=== PATIENT | female | born 1940 | race Caucasian/White ===

== ENCOUNTER 2020-03-30 07:19 | Day surgery (SDC) | payer OTHER ==
--- NOTE | 2020-03-28 15:25 | RAD REPORT ---
EXAM DESCRIPTION: RAD - Chest Pa And Lat (2 Views) - 03/28/2020 3:16 pm CLINICAL HISTORY: preop Chest pain. COMPARISON: CHEST PA AND LAT 2 VIEW dated 11/22/2015 FINDINGS: The lungs are clear. The heart is mildly prominent in size. No displaced fractures. IMPRESSION: No acute or concerning finding suspected.
[2020-03-28 15:32] LABS: Absolute Lymphocytes (CBC) 1.6 K/uL (0.7-4.9); Basophils % 0.4 % (0-1.3); Hematocrit 42.6 % (36.0-45.0); Lymphocytes % 28.7 % (15.3-44.8); MPV 10.1 fL (7.6-11.3); RBC Red Blood Cell Count 4.68 M/uL (3.86-4.86)
[2020-03-28 15:49] LABS: Potassium 4.8 mmol/L (3.5-5.1)
--- NOTE | 2020-03-29 19:29 | EKG ---
Test Date: 2020-03-28 Test Time: 14:58:11 [employer] Operator: JACOB MEASUREMENT RESULTS: Intervals: Rate: 70 [place]: 156 QRSD: 90 QT: 404 QTc: 436 [place]: P: 55 [place]: 156 QRS: -7 T: 136 INTERPRETIVE STATEMENTS: Sinus rhythm with sinus arrhythmia with occasional premature ventricular complexes Possible Left atrial enlargement Left ventricular hypertrophy Nonspecific ST and T wave abnormality Abnormal ECG Compared to ECG 10/05/2007 15:50:43 Ventricular premature complex(es) now present Left ventricular hypertrophy now present Sinus bradycardia no longer present ST (T wave) deviation still present Electronically Signed On 03-29-20 19:24:24 CDT by Jordy Eugene
--- OUTSIDE RECORDS SUMMARY | 2020-03-30 07:22 | XMS REPORT | Continuity of Care Document ---
:1940 Author Organization [facility] t Address [address] [place] [address] [address] [place] [address] Care Team Providers Name Role Phone Unavailable Unavailable Unavailable Problems Condition Condition Condition Status Onset Resolution Last Treating Co mments Source Name Details Category Date Date Treatment Clinician Date GERD GERD Problem Active [facility] esophagiti esophagiti [facility] Essential Essential Problem Active [facility] (primary[facility] (primary[facility] - hypertensi hypertensi Me moria on on l [facility] Depression Depression Problem Active [facility] with with [facility] - anxiety anxiety [facility] Osteopenia Osteopenia Diagnosis Active [facility] of neck of of neck of [place] - left femur left femur Me moria l [facility] Obstructiv Obstructiv Diagnosis Active [facility] e sleep e sleep [facility] - apnea apnea [facility] syndrome syndrome l [facility] Diverticul Diverticul Diagnosis Active [facility] osis of osis of [facility] - large large Memoria intestine intestine l without without Outpati hemorrhage hemorrhage en t Clinics Nocturia Nocturia Diagnosis Active [facility] Allergies, Adverse Reactions, Alerts This patient has no known allergies or adverse reactions. Medications Ordered Filled Start Stop Current Ordering Indication Dosage Frequency Signature Comments Components Source Medication Medication Date Date Medication? Clinician (SIG) Name Name Align Align Yes Toan as [facility] Calcium Calcium Yes Toan [address] [facility] with meals [facility] Ciprofloxac Ciprofloxac Yes Toan [address] [facility] in HCl in HCl [facility] - [facility] Ativan Ativan Yes [facility] - as needed [facility] Omeprazole Omeprazole Yes Toan [address] [facility] Vitamin D3 Vitamin D3 Yes Otan [address] capsule [facility] Aspir-81 Aspir-81 Yes Toan [address] [facility] Metronidazo Metronidazo Yes Toan [address] [facility] Miralax Miralax Yes Toan One packet [facility] mixed with [facility] - 8 oz of Memoria Fluid l Outpati ent Clinics Stool Stool Yes Toan [address] [facility] Softener Softener Jose as needed L ukes - [facility] ent [facility] Diltiazem Diltiazem Yes Toan [address] [facility] [address] HCl ER HCl ER [facility] [place] [facility] Escitalopra Escitalopra Yes Toan [address] [facility] m Oxalate m Oxalate Jose [facility] - [facility] ent [facility] Procedures This patient has no known procedures. Encounters Start End Encounter Admission Attending Care Care Encounter Source Date/Time Date/Time Type Type Clinicians Facility Department ID 2020-04-26 2020-04-26 Outpatient [facility] [id number] 13:00:00 13:00:00 03 farhana Bond 2019-10-23 2019-10-23 Outpatient [facility] [id number] [facility] 16:15:00 16:15:00 02 farhana Bond 2019-09-11 2019-09-11 Outpatient [facility] [id number] [facility] 09:45:00 09:45:00 01 farhana Bond 2019-03-13 2019-03-13 Outpatient [facility] [id number] [facility] 09:45:00 09:45:00 00 farhana Bond 2018-05-05 2018-05-05 [facility] [id number] [facility] 14:15:00 14:15:[address] [facility] Medicine Medicine Outpati ent Clinics Results This patient has no known results.
[2020-03-30] MEDS ORDERED: BUPIVACAINE 0.5% PF 10 ML VIAL ONE (07:44)
[2020-03-30] MEDS ORDERED: Ringers Lactate 1,000 ML IV ONE ×2 (07:58→09:57)
[2020-03-30] MEDS ORDERED: CEFOXITIN/SWI 1gm 1 GM/10 ML SYR ONE (08:12)
[2020-03-30] MEDS ORDERED: MIDAZOLAM HCL 2 MG/2 ML INJ ONE (08:19)
[2020-03-30] MEDS ORDERED: LIDOCAINE 2% MPF 5 ML VIAL ONE (08:19)
[2020-03-30] MEDS ORDERED: FENTANYL CITR 100 MCG/2 ML ONE (08:19)
[2020-03-30] MEDS ORDERED: propofoL 200 MG/20 ML VIAL IV ONE (08:19)
[2020-03-30] MEDS ORDERED: ROCURONIUM 50 MG/5 ML VIAL IV ONE (08:20)
[2020-03-30] MEDS ORDERED: dexAMETHasone 10 MG/ML VIAL ONE (08:25)
[2020-03-30] MEDS ORDERED: GLYCOPYRROLATE 0.2 MG/ML SYR ONE (09:06)
[2020-03-30] MEDS ORDERED: KETOROLAC 30 MG/ML INJ ONE (09:27)
[2020-03-30] MEDS: LABETALOL 20 MG/4ML SYRINGE IV ONE ×2 (10:20→10:35)
[2020-03-30] MEDS ORDERED: ONDANSETRON 4 MG/2 ML VIAL ONE (10:36)
[2020-03-30] MEDS: HYDRALAZINE HCL 20 MG/ML VIAL ONE ×2 (10:58→11:03)
[2020-03-30] MEDS ORDERED: HYDROCODONE/APAP 7.5/325 MG TAB ONE (12:43)
[2020-03-30 13:12] VITALS: BP 137/51; TEMP 98; O2SAT 95
--- NOTE | 2020-03-30 20:07 | OP ---
Date of Procedure: 03/30/2020 Surgeon: Harsha Lopez MD Preoperative Diagnosis: Chronic cholecystitis and biliary dyskinesia. Postoperative Diagnosis: Chronic cholecystitis and biliary dyskinesia. Procedure: Laparoscopic cholecystectomy. Estimated Blood Loss: Minimal. Specimen: Gallbladder. Finding: As above. Anesthesia: General. Complications: None. Patient taken to Recovery in good general condition. Description Of Procedure: Patient was brought to the OR and placed in supine position. General anes thesia begun. Patient was prepped and draped in usual sterile fashion. Marcaine 0.5% infiltrated lo valerie. 15 blade was used to make a 1 cm supraumbilical midline incision. Subcutaneous tissues were divided. Fascia identified and divided. #1 Vicryl stay suture was placed. Peritoneal cavity was en tered with blunt dissection. A 12-mm trocar was placed into the peritoneal cavity under direct visio n. Pneumoperitoneum was established. Then, three 5 mm trocars were placed, 1 in the epigastrium jus t to the right of midline and 2 in the right subcostal region. Laparoscopy revealed inflammation of the gallbladder. Fundus retracted superiorly. Infundibulum was identified and retracted inferolater ally. Cystic duct and cystic artery were clearly identified with blunt dissection. Clips placed. B oth structures divided. There was minimal oozing noted from a branch of the cystic artery and as we could not get all the way around it and it was very been normal oozing, we put Avitene and Surgicel o n it and this controlled it without any difficulty. Then, cautery was used to remove the gallbladder from the liver bed. Bleeding on the liver bed was controlled with cautery. The gallbladder was ret rieved through the EndoCatch bag. Right upper quadrant examined and no evidence of bleeding or oozin g noted for any further. Surgicel and Avitene took care of the problem. Subsequently, all trocars wer e removed under direct vision. Stay sutures were tied to each other to reapproximate the fascial def ect. Subcutaneous wounds irrigated. Bleeding controlled with cautery. 3-0 chromic used for subcutane ous tissue and ray used to close the skin. Sterile dressing applied. Patient was awakened and t aken to Recovery in good general condition. Discharge Note: Patient will go to Day Surgery and home when stable. Disposition: Home. Condition: Stable. Discharge Instructions: Resume home medications and diet. Activity as tolerated. No heavy lifting. Remove outer dressing in 2 days. Shower. Keep wound clean and dry. Follow up in my office in 1 w [place]. Call for appointment. Tylenol No. 3 one tablet p.o. q.4 p.r.n. pain. Incentive spirometry as ordered. LEONEL/JOSE Voice ID: [id number] Report ID: [id number]
== END 2020-03-30 13:15 | disposition home or self-care (01) ==
LOC: OR 07:19
PROVIDERS: ATTEND Surgery
PROC: 0FT44ZZ Resection of Gallbladder, Percutaneous Endoscopic Approach (ICD-10-PCS; principal; 2020-03-30 08:30)
DX: K81.1 Chronic cholecystitis (principal); K82.8 Other specified diseases of gallbladder; I10 Essential (primary) hypertension; I49.3 Ventricular premature depolarization; G47.33 Obstructive sleep apnea (adult) (pediatric); K21.9 Gastro-esophageal reflux disease without esophagitis; K76.0 Fatty (change of) liver, not elsewhere classified; F32.9 Major depressive disorder, single episode, unspecified; Z91.013 Allergy to seafood
CPT/HCPCS: 93005; 85025; 80048; 36415; 88304; 71046; 47562; J0360; J2704; J2250; J3010; J1100; J7120 ×2; J2405

== ENCOUNTER 2024-07-08 10:29 | Day surgery (SDC) | payer OTHER ==
[2024-07-07 10:16] LABS: Absolute Eosinophils 0.1 K/uL (0-0.5); Absolute Lymphocytes (CBC) 1.3 K/uL (0.7-4.9); Absolute Monocytes 0.5 K/uL (0.1-1.3); Absolute Neutrophil 2.2 K/uL (1.8-8.0); Basophils % 0.5 % (0-1.3); Eosinophils % 2.5 % (0-4.4); Hematocrit 41.2 % (36.0-45.0); Hemoglobin 13.5 g/dL (12.0-15.0); Lymphocytes % 31.6 % (15.3-44.8); MCH 29.9 pg (27.0-35.0); MCHC 32.7 g/dL (32.0-36.0); MCV 91.3 fL (80-100); MPV 9.4 fL (7.6-11.3); Monocytes % 11.7 % (3.3-12.3); Neutrophils % 53.7 % (41.7-73.7); Platelets 204 thou/uL (152-406); RBC Red Blood Cell Count 4.51 M/uL (3.86-4.86); Red Cell Distribution Width 13.9 % (12.1-15.2)
[2024-07-07 10:29] LABS: Anion Gap 7.8 mEq/L (5.0-15.0); Potassium 3.8 mEq/L (3.5-5.1)
--- NOTE | 2024-07-07 16:53 | EKG ---
Test Date: 2024-07-07 Test Time: 10:11:21 Mechanics Supervisor: CÉSAR MEASUREMENT RESULTS: Intervals: Rate: 63 [place]: 162 QRSD: 100 QT: 438 QTc: 448 [place]: P: 63 [place]: 162 QRS: 42 T: 145 INTERPRETIVE STATEMENTS: Sinus rhythm with occasional premature ventricular complexes Septal infarct, age undetermined Abnormal ECG Compared to ECG 03/28/2020 14:58:11 Myocardial infarct finding now present Sinus arrhythmia no longer present Left ventricular hypertrophy no longer present ST (T wave) deviation no longer present Electronically Signed On 07-07-24 16:52:15 CDT by Jamir Spear
[2024-07-08] MEDS ORDERED: Ringers Lactate 1,000 ML IV ONE (10:52)
[2024-07-08] MEDS ORDERED: LIDOCAINE 1% MPF 5 ML VIAL ONE (12:18)
[2024-07-08] MEDS ORDERED: propofoL 200 MG/20 ML VIAL IV ONE ×2 (12:18→12:43)
[2024-07-08 13:45] VITALS: O2SAT 100
[2024-07-08 13:46] VITALS: BP 15/74; TEMP 97.7
== END 2024-07-08 13:50 | disposition home or self-care (01) ==
LOC: OR 10:29
PROVIDERS: ATTEND Surgery
PROC: 0DBM8ZX Excision of Descending Colon, Via Natural or Artificial Opening Endoscopic, Diagnostic (ICD-10-PCS; 2024-07-08)
PROC: 0DBH8ZX Excision of Cecum, Via Natural or Artificial Opening Endoscopic, Diagnostic (ICD-10-PCS; principal; 2024-07-08 12:00)
DX: K62.5 Hemorrhage of anus and rectum (principal); K57.30 Diverticulosis of large intestine without perforation or abscess without bleeding; K64.8 Other hemorrhoids; D12.0 Benign neoplasm of cecum; D12.4 Benign neoplasm of descending colon; I10 Essential (primary) hypertension; F41.9 Anxiety disorder, unspecified; F32.A Depression, unspecified; K21.9 Gastro-esophageal reflux disease without esophagitis; Z79.01 Long term (current) use of anticoagulants
CPT/HCPCS: 45385; 93005; 85025; 80048; 36415; 88305; J2704; J2001; J7120